=== PATIENT | male | born 1970 | race Caucasian/White ===

== ENCOUNTER 2022-09-09 06:50 | Outpatient (CLI) | payer BC, SELFPAY ==
[2022-09-09 14:56] LABS: Albumin* 4.6 g/dL (3.3-5.0); Chloride* 98 mmol/L (96-114)
[2022-09-09 14:57] LABS: Potassium* 4.3 mmol/L (3.6-5.1); Sodium* 137 mmol/L (135-149)
[2022-09-09 14:58] LABS: Cholesterol* 211 mg/dL (90-199)
[2022-09-09 14:59] LABS: Alanine Aminotransferase* 52 U/L (4-50); Alkaline Phosphatase* 34 U/L (40-150); Aspartate Amino Transferase* 47 U/L (12-35); Blood Urea Nitrogen* 21 mg/dL (7-30); Carbon Dioxide* 29 mmol/L (20-32); Estimated Glomerular Filt Rate 90 ml/min; Glucose* 129 mg/dL (60-115); Total Protein* 7.7 g/dL (6.0-8.3)
[2022-09-09 15:00] LABS: Calcium* 9.4 mg/dL (8.4-10.6); HDL Cholesterol* 38 mg/dL (>=40); LDL Cholesterol Calculated 108 mg/dL (<100); Triglycerides* 323 mg/dL (40-149)
[2022-09-09 15:08] LABS: Creatinine Urine 81.7 mg/dL
[2022-09-09 15:12] LABS: Microalbumin Creatinine Ratio 10 mg/g (0-30); Microalbumin Urine < 1 mg/dL
== END 2022-09-09 06:51 | disposition home or self-care (01) ==
PROVIDERS: PCP Family Medicine; Visit Provider Family Medicine
DX: Z00.00 Encounter for general adult medical examination without abnormal findings (principal); R03.0 Elevated blood-pressure reading, without diagnosis of hypertension; Z13.1 Encounter for screening for diabetes mellitus; Z13.6 Encounter for screening for cardiovascular disorders
CPT/HCPCS: 80053; 80061; 82043; 82570

== ENCOUNTER 2023-06-18 12:57 | Outpatient (CLI) | payer BC, SELFPAY | END 2023-06-18 12:58 | disposition home or self-care (01) | LOC: NFLDREF 06-20 12:46 | PROVIDERS: PCP Family Medicine; Referring Provider Family Medicine; Visit Provider Family Medicine | DX: I10 Essential (primary) hypertension (principal); E78.5 Hyperlipidemia, unspecified; R73.03 Prediabetes | CPT/HCPCS: 80053; 80061; 82043; 82306; 82570 ==

== ENCOUNTER 2023-06-24 08:00 | Outpatient (CLI) | payer BC, SELFPAY | END 2023-06-24 08:01 | disposition home or self-care (01) | LOC: NFLDREF 06-25 14:32 | PROVIDERS: PCP Family Medicine; Referring Provider Family Medicine; Visit Provider Family Medicine | DX: E66.01 Morbid (severe) obesity due to excess calories (principal); R73.03 Prediabetes; I10 Essential (primary) hypertension; E78.5 Hyperlipidemia, unspecified; E55.9 Vitamin D deficiency, unspecified | CPT/HCPCS: 80053; 80061; 82306 ==

== ENCOUNTER 2023-10-05 14:06 | Outpatient (CLI) | payer BC, SELFPAY | END 2023-10-05 14:07 | disposition home or self-care (01) | PROVIDERS: PCP Family Medicine; Visit Provider Family Medicine | DX: I10 Essential (primary) hypertension (principal); E78.5 Hyperlipidemia, unspecified; R73.03 Prediabetes; R80.9 Proteinuria, unspecified; E66.01 Morbid (severe) obesity due to excess calories | CPT/HCPCS: 80053; 80061; 82043; 82570 ==

== ENCOUNTER 2024-11-02 08:19 | Outpatient (CLI) | payer BC, SELFPAY | END 2024-11-02 08:20 | disposition home or self-care (01) | LOC: FRMREF 08:20 | PROVIDERS: Visit Provider Nurse Practitioner Family | DX: I10 Essential (primary) hypertension (principal); E78.5 Hyperlipidemia, unspecified; Z12.5 Encounter for screening for malignant neoplasm of prostate | CPT/HCPCS: 80053; 80061; G0103 ==

== ENCOUNTER 2024-12-19 07:46 | Outpatient (CLI) | payer BC, SELFPAY ==
--- NOTE | 2024-12-19 08:48 | P.ANES_ITS ---
Anesthesia Charges Start Date/Time Anesthesia Start Date: 12/19/24 Anesthesia Start Time: 08:30 Stop Date/Time Anesthesia Stop Date: 12/19/24 Anesthesia Stop Time: 08:46 Coding CPT Codes CPT Codes: COLTON LWR INTST SCR COLSC - [id number] ([id number]) P2 - PATIENT W/MILD SYST DISEASE, QK - SHARED SERVICES MANAGER 2-4 CNCRNT ANES PROC, QX - PLASTER MOLDER SVC W/ MD MED DIRECTION
--- NOTE | 2024-12-19 08:48 | W.ANESCHARGE ---
Anesthesia Charges Start Date/Time Anesthesia Start Date: 12/19/24 Anesthesia Start Time: 08:30 Stop Date/Time Anesthesia Stop Date: 12/19/24 Anesthesia Stop Time: 08:46 Coding CPT Codes CPT Codes: COLTON LWR INTST SCR COLSC - [id number] ([id number]) P2 - PATIENT W/MILD SYST DISEASE, QK - CUSTOM LEATHER PRODUCTS MAKER 2-4 CNCRNT ANES PROC, QX - CRIME ANALYST SVC W/ MD MED DIRECTION
--- NOTE | 2024-12-19 08:58 | P.ANES_ITS ---
Anesthesia Charges Start Date/Time Anesthesia Start Date: 12/19/24 Anesthesia Start Time: 08:30 Stop Date/Time Anesthesia Stop Date: 12/19/24 Anesthesia Stop Time: 08:46 Coding CPT Codes CPT Codes: COLTON LWR INTST SCR COLSC - [id number] ([id number]) P2 - PATIENT W/MILD SYST DISEASE, QK - LOOM TECHNICIAN 2-4 CNCRNT ANES PROC, QX - PSYCHOLOGY TECHNICIAN SVC W/ MD MED DIRECTION
--- NOTE | 2024-12-19 08:58 | W.ANESCHARGE ---
Anesthesia Charges Start Date/Time Anesthesia Start Date: 12/19/24 Anesthesia Start Time: 08:30 Stop Date/Time Anesthesia Stop Date: 12/19/24 Anesthesia Stop Time: 08:46 Coding CPT Codes CPT Codes: COLTON LWR INTST SCR COLSC - [id number] ([id number]) P2 - PATIENT W/MILD SYST DISEASE, QK - OFFICE MANAGER RECEPTIONIST 2-4 CNCRNT ANES PROC, QX - DECKHAND CLAM DREDGE SVC W/ MD MED DIRECTION
== END 2024-12-19 07:47 | disposition home or self-care (01) ==
LOC: OP CLINIC 07:46
PROVIDERS: Visit Provider Internal Medicine
DX: Z12.11 Encounter for screening for malignant neoplasm of colon (principal); K57.30 Diverticulosis of large intestine without perforation or abscess without bleeding
CPT/HCPCS: 00812; 45378; J2704